=== PATIENT | male | born 1985 | race Caucasian/White ===

== ENCOUNTER 2017-04-30 23:37 | Emergency (ER) | payer OTHER ==
[2017-04-30] MEDS ORDERED: ONDANSETRON 4 MG/2 ML VIAL IVP ONE (23:57)
[2017-04-30] MEDS ORDERED: NS 1,000 ML IV ONE (23:57)
[2017-04-30] MEDS ORDERED: KETOROLAC 15 MG/1 ML SDV IVP ONE (23:58)
--- NOTE | 2017-05-01 00:01 | EDPHY ---
H & P Stated Complaint: l side face pain and head ache vomited x1 Time Seen by Provider: 04/30/17 23:50 HPI/ROS: HPI The patient presents with acute onset headache which began just prior to presentation. The patient was playing soccer when he had gradual onset of severe sharp left-sided headache that began in his left frontal region and was periorbital. It since has began to radiate backwards towards his occiput. He has vomited multiple times. He did not have any head injury. He had some transient changes of his vision, now resolved. He has no prior history of headache.. REVIEW OF SYSTEMS Constitutional: No fever, no chills. Eyes: No discharge. ENT: No sore throat. Cardiovascular: No chest pain, no palpitations. Respiratory: No cough, no shortness of breath. Gastrointestinal: No abdominal pain, positive for vomiting. Genitourinary: No hematuria. Musculoskeletal: No back pain. Skin: No rashes. Neurological: Positive for headache. PMHx: Healthy Soc Hx: FHx: Diabetes PHYSICAL General Appearance: Alert, no distress Eyes: Pupils equal and round no pallor or injection ENT, Mouth: Mucous membranes moist, normal TM Respiratory: There are no retractions, lungs are clear to auscultation Cardiovascular: Regular rate and rhythm Gastrointestinal: Abdomen is soft and non-tender, no masses, bowel sounds normal Neurological: A&O x3, cranial nerves 2-12 intact, 5/5 strength in upper and lower extremities which is symmetric, normal finger to nose testing Skin: Warm and dry, no rashes Musculoskeletal: Neck is supple non tender Extremities: symmetrical, full range of motion Psychiatric: Patient is oriented X 3, there is no agitation Source: Patient Exam Limitations: No limitations - Personal History Current Tetanus/Diphtheria Vaccine: No Current Tetanus Diphtheria and Acellular Pertussis (TDAP): No - Medical/Surgical History Hx Asthma: No Hx Chronic Respiratory Disease: No Hx Diabetes: No Hx Cardiac Disease: No Hx Renal Disease: No Hx Cirrhosis: No Hx Alcoholism: No Hx HIV/AIDS: No Hx Splenectomy or Spleen Trauma: No - Social History Smoking Status: Current some day smoker Constitutional: Initial Vital Signs Temperature (C) 36.5 C 04/30/17 23:41 Heart Rate 104 H 04/30/17 23:41 Respiratory Rate 18 04/30/17 23:41 Blood Pressure 119/78 04/30/17 23:41 O2 Sat (%) 92 04/30/17 23:41 O2 Delivery Mode Room Air Allergies/Adverse Reactions: No Known Allergies Allergy (Unverified 04/30/17 23:40) Home Medications: Medication Instructions Recorded NK [No Known Home Meds] 04/30/17 Medical Decision Making - Diagnostics Imaging Results: CT scan of head noncontrast is unremarkable, discussed with Dr. Smith of Radiology. Differential Diagnosis: 31-year-old male who presents with acute onset of headache associated with vomiting, atraumatic. No prior history of headache. Differential diagnosis includes subarachnoid hemorrhage, migraine, tension type headache, early varicella zoster. In the emergency department, patient was given IV fluids and Toradol with complete resolution of his headache. CT scan was pursued given acute onset of headache. This is unremarkable for any bleed. Given he is within 6 hr of onset of headache I do not believe LP needs to be performed for evaluation of subarachnoid hemorrhage. Given that he is completely better, he will be discharged home. I have instructed him he could take ibuprofen or Excedrin migraine as needed if his headache recurs. - Data Points Medications Given: Discontinued Medications Sodium Chloride (Ns) 1,000 mls @ 0 mls/hr IV ONCE ONE; Wide Open PRN Reason: Protocol Stop: 04/30/17 23:58 Last Admin: 05/01/17 00:06 Dose: 1,000 mls Ketorolac Tromethamine (Toradol) 15 mg IVP EDNOW ONE Stop: 04/30/17 23:59 Last Admin: 05/01/17 00:06 Dose: 15 mg Ondansetron HCl (Zofran) 4 mg IVP EDNOW ONE Stop: 04/30/17 23:58 Last Admin: 05/01/17 00:07 Dose: 4 mg Departure - Departure Disposition: Home, Routine, Self-Care Clinical Impression: Headache Condition: Good Instructions: Acute Headache (ED) Additional Instructions: The cause of your headache is not entirely clear, it could be a migraine or a tension type headache. I recommend that you try Excedrin migraine over-the- counter if your headache returns. You should return to the emergency department if your worse in any way. Referrals: [facility],. [Clinic] - As per Instructions
[2017-05-01 01:15] VITALS: BP 114/77; PULSE 93; RESP 16; TEMP 98.8; O2SAT 97
== END 2017-05-01 01:14 | disposition home or self-care (01) ==
DX: R51 Headache (principal); F17.200 Nicotine dependence, unspecified, uncomplicated; E86.9 Volume depletion, unspecified
CPT/HCPCS: 96374; J1885; J2405